=== PATIENT | female | born 1965 | race Caucasian/White ===

== ENCOUNTER → 2016-06-20 | Outpatient (CLI) | payer BC ==
[~2016-06-20] MED LIST: BIRTH CONTROL1 EAC1 PO; DAYPRO600 M1 PO; IMURAN50 MG PO; MEDROL DOSEPAK4 MG PO; ROBAXIN750 MG PO; VICODIN 500 MG-1 TAB PO; ZOFRAN ODT4 MG PO
[2016-06-20 11:57] LABS: C-REACTIVE PROTEIN 0.46 MG/DL (0-0.3); FREE T4 0.93 ng/dl (0.76-1.46)
[2016-06-20 12:02] LABS: THYROID STIM HORMONE (HS) 2.06 uIU/ml (0.358-4.75)
== END | disposition home or self-care (01) ==
LOC: LAB 11:02
PROVIDERS: Family Medicine
DX: I49.3 Ventricular premature depolarization (principal); K50.10 Crohn's disease of large intestine without complications

== ENCOUNTER → 2016-08-03 | Outpatient (CLI) | payer BC | END | disposition home or self-care (01) | LOC: MAMMO 11:03 | DX: N63 Unspecified lump in breast (principal); N60.01 Solitary cyst of right breast ==

== ENCOUNTER → 2017-11-02 | Outpatient (CLI) | payer BC | END | disposition home or self-care (01) | LOC: MAMMO 03:26 | DX: Z12.31 Encounter for screening mammogram for malignant neoplasm of breast (principal); R92.1 Mammographic calcification found on diagnostic imaging of breast ==

== ENCOUNTER → 2018-11-29 | Outpatient (CLI) | payer BC ==
[2018-11-29 09:10] LABS: ALKALINE PHOSPHATASE 71 U/L (45-117); BUN 14 mg/dl (7-24); CHLORIDE 107 mmol/L (98-107); CHOLESTEROL 210 mg/dL (<200); CPK 111 U/L (26-192); CREATININE 0.61 mg/dL (0.55-1.02); HDL CHOLESTEROL 46 mg/dl (40-60); LDL CHOLESTEROL 124 mg/dL (9-159); SGOT/AST 13 IU/L (3-35); SGPT/ALT 18 U/L (12-78); SODIUM 139 mmol/L (136-145); TOTAL PROTEIN 7.6 gm/dL (6.4-8.2); TRIGLYCERIDES 198 mg/dl (<150); VLDL CHOLESTEROL 40 mg/dL (6-40)
== END | disposition home or self-care (01) ==
LOC: LAB 08:09
PROVIDERS: Family Medicine
DX: E78.00 Pure hypercholesterolemia, unspecified (principal)

== ENCOUNTER → 2019-03-11 | Outpatient (CLI) | payer BC | END | disposition home or self-care (01) | LOC: US 12:30 | DX: N93.9 Abnormal uterine and vaginal bleeding, unspecified (principal) ==

== ENCOUNTER → 2019-03-19 | Outpatient (CLI) | payer BC | END | disposition home or self-care (01) | LOC: MAMMO 12:49 | DX: Z12.31 Encounter for screening mammogram for malignant neoplasm of breast (principal) ==

== ENCOUNTER → 2019-09-25 | Outpatient (CLI) | payer BC ==
[2019-09-25 10:22] LABS: ALBUMIN 4.1 gm/dl (3.1-4.5); BUN 11 mg/dl (7-24); CHLORIDE 106 mmol/L (98-107); CHOLESTEROL 287 mg/dL (<200); CREATININE 0.69 mg/dL (0.55-1.02); SGOT/AST 21 IU/L (3-35); SGPT/ALT 30 U/L (12-78); SODIUM 139 mmol/L (136-145); TRIGLYCERIDES 237 mg/dl (<150); VLDL CHOLESTEROL 47 mg/dL (6-40)
[2019-09-25 10:23] LABS: ALKALINE PHOSPHATASE 94 U/L (45-117); CPK 145 U/L (26-192); HDL CHOLESTEROL 47 mg/dl (40-60); LDL CHOLESTEROL 193 mg/dL (9-159); TOTAL PROTEIN 8.1 gm/dL (6.4-8.2)
== END | disposition home or self-care (01) ==
LOC: LAB 08:52
PROVIDERS: Family Medicine
DX: E78.00 Pure hypercholesterolemia, unspecified (principal); E55.9 Vitamin D deficiency, unspecified

== ENCOUNTER → 2019-10-28 | Outpatient (CLI) | payer BC | END | disposition home or self-care (01) | LOC: LAB 09:34 | PROVIDERS: ATTEND Internal Medicine Gastroenterology | DX: K50.10 Crohn's disease of large intestine without complications (principal); R19.7 Diarrhea, unspecified ==

== ENCOUNTER → 2019-12-24 | Outpatient (CLI) | payer BC | END | disposition home or self-care (01) | LOC: COVID19 00:23 | PROVIDERS: ATTEND Family Medicine | DX: Z20.828 Contact with and (suspected) exposure to other viral communicable diseases (principal) ==

== ENCOUNTER 2019-12-25 18:14 | Emergency (ER) | payer BC ==
[~2019-12-25] VITALS: Ht 162.5 cm; Wt 72.6 kg
[2019-12-25 19:49] LABS: BASO % 0.2 % (0.0-1.0); EOS % 0.4 % (1.0-4.0); HEMATOCRIT 38.9 % (37.0-47.0); LYMPH # 0.8 10*3/uL (1.3-4.4); LYMPH % 17.5 % (27.0-41.0); MEAN CELL VOLUME 90.7 fl (81.0-99.0); MEAN CORPUSCULAR HGB 29.8 pg (27.0-31.0); MEAN CORPUSCULAR HGB CONC 32.9 g/dl (33.0-37.0); MEAN PLATELET VOLUME 9.1 fl (9.6-12.3); MONO # 0.4 10*3/uL (0.1-1.0); MONO % 7.7 % (3.0-9.0); NEUT # 3.5 10*3/uL (2.3-7.9); NEUT % 73.6 % (47.0-73.0); PLATELET COUNT AUTOMATED 246 10*3/uL (130-400); RED BLOOD COUNT 4.29 10*6/uL (4.10-5.10); RED CELL DISTRI WIDTH 13.2 % (0-14.5); WHITE BLOOD COUNT 4.7 10*3/uL (4.8-10.8)
[2019-12-25 20:05] LABS: ALKALINE PHOSPHATASE 88 U/L (45-117); BUN 14 mg/dl (7-24); CHLORIDE 107 mmol/L (98-107); CREATININE 0.68 mg/dL (0.55-1.02); POTASSIUM 3.5 mmol/L (3.5-5.1); SGOT/AST 19 IU/L (3-35); SGPT/ALT 22 U/L (12-78); SODIUM 140 mmol/L (136-145); TOTAL PROTEIN 7.8 gm/dL (6.4-8.2)
== END 2019-12-25 21:59 | disposition home or self-care (01) ==
LOC: ED 18:14
PROVIDERS: Physician Assistant
DX: B34.9 Viral infection, unspecified (principal); Z79.899 Other long term (current) drug therapy

== ENCOUNTER → 2020-01-22 | Outpatient (CLI) | payer BC ==
[2020-01-22 10:15] LABS: ALBUMIN 4.2 gm/dl (3.1-4.5); BUN 15 mg/dl (7-24); CHLORIDE 108 mmol/L (98-107); CHOLESTEROL 172 mg/dL (<200); CPK 131 U/L (26-192); CREATININE 0.64 mg/dL (0.55-1.02); POTASSIUM 3.8 mmol/L (3.5-5.1); SGOT/AST 20 IU/L (3-35); SGPT/ALT 25 U/L (12-78); SODIUM 141 mmol/L (136-145); TOTAL PROTEIN 7.9 gm/dL (6.4-8.2); TRIGLYCERIDES 154 mg/dl (<150); VLDL CHOLESTEROL 31 mg/dL (6-40)
[2020-01-22 10:16] LABS: ALKALINE PHOSPHATASE 63 U/L (45-117); HDL CHOLESTEROL 52 mg/dl (40-60); LDL CHOLESTEROL 89 mg/dL (9-159)
== END | disposition home or self-care (01) ==
LOC: LAB 08:54
PROVIDERS: ATTEND Family Medicine
DX: E78.00 Pure hypercholesterolemia, unspecified (principal)

== ENCOUNTER → 2020-04-13 | Outpatient (CLI) | payer BC ==
[2020-04-13 09:42] LABS: BASO # 0.1 10*3/uL (0.0-0.1); BASO % 0.8 % (0.0-1.0); EOS # 0.1 10*3/uL (0.0-0.4); EOS % 1.9 % (1.0-4.0); HEMATOCRIT 40.6 % (37.0-47.0); LYMPH # 1.5 10*3/uL (1.3-4.4); MEAN CELL VOLUME 91.6 fl (81.0-99.0); MEAN CORPUSCULAR HGB 29.6 pg (27.0-31.0); MEAN CORPUSCULAR HGB CONC 32.3 g/dl (33.0-37.0); MEAN PLATELET VOLUME 9.4 fl (9.6-12.3); MONO # 0.4 10*3/uL (0.1-1.0); NEUT # 4.2 10*3/uL (2.3-7.9); NEUT % 66.7 % (47.0-73.0); PLATELET COUNT AUTOMATED 322 10*3/uL (130-400); RED BLOOD COUNT 4.43 10*6/uL (4.10-5.10); WHITE BLOOD COUNT 6.3 10*3/uL (4.8-10.8)
[2020-04-13 10:28] LABS: ALBUMIN 3.8 gm/dl (3.1-4.5); ALKALINE PHOSPHATASE 84 U/L (45-117); BUN 14 mg/dl (7-24); CHLORIDE 110 mmol/L (98-107); CPK 128 U/L (26-192); CREATININE 0.66 mg/dL (0.55-1.02); POTASSIUM 4.1 mmol/L (3.5-5.1); SGOT/AST 21 IU/L (3-35); SGPT/ALT 27 U/L (12-78); SODIUM 143 mmol/L (136-145); TOTAL PROTEIN 7.7 gm/dL (6.4-8.2)
== END | disposition home or self-care (01) ==
LOC: LAB 09:13
PROVIDERS: Family Medicine; ATTEND Nurse Practitioner Family
DX: K50.10 Crohn's disease of large intestine without complications (principal); E78.00 Pure hypercholesterolemia, unspecified; R19.7 Diarrhea, unspecified; Z20.822 Contact with and (suspected) exposure to COVID-19

== ENCOUNTER → 2020-06-23 | Outpatient (CLI) | payer BC | END | disposition home or self-care (01) | LOC: RAD 08:04 | PROVIDERS: ATTEND Family Medicine | DX: M79.671 Pain in right foot (principal) ==

== ENCOUNTER → 2020-07-06 | Outpatient (CLI) | payer BC | END | disposition home or self-care (01) | LOC: MAMMO 09:30 | PROVIDERS: ATTEND Nurse Practitioner Women's Health | DX: Z12.31 Encounter for screening mammogram for malignant neoplasm of breast (principal); N64.89 Other specified disorders of breast ==

== ENCOUNTER → 2020-07-21 | Outpatient (CLI) | payer BC | END | disposition home or self-care (01) | LOC: CARD 15:00 | PROVIDERS: ATTEND Physical Therapist | DX: I51.7 Cardiomegaly (principal); I49.9 Cardiac arrhythmia, unspecified ==

== ENCOUNTER → 2020-07-24 | Outpatient (CLI) | payer BC | END | disposition home or self-care (01) | LOC: LAB 08:59 | PROVIDERS: Physical Therapist; ATTEND Family Medicine | DX: I10 Essential (primary) hypertension (principal); R73.9 Hyperglycemia, unspecified ==

== ENCOUNTER → 2020-10-28 | Outpatient (CLI) | payer BC | END | disposition home or self-care (01) | LOC: LAB 15:26 | PROVIDERS: ATTEND Nurse Practitioner Family | DX: R19.7 Diarrhea, unspecified (principal) ==

== ENCOUNTER → 2021-07-28 | Outpatient (CLI) | payer BC | END | disposition home or self-care (01) | LOC: MAMMO 11:00 | PROVIDERS: ATTEND Nurse Practitioner Women's Health | DX: Z12.31 Encounter for screening mammogram for malignant neoplasm of breast (principal) ==

== ENCOUNTER → 2022-07-19 | Outpatient (CLI) | payer BC | END | disposition home or self-care (01) | LOC: LAB 08:47 | PROVIDERS: ATTEND Internal Medicine Gastroenterology | DX: K50.10 Crohn's disease of large intestine without complications (principal) ==

== ENCOUNTER → 2022-07-20 | Outpatient (CLI) | payer BC | END | disposition home or self-care (01) | LOC: LAB 01:33 | PROVIDERS: ATTEND Internal Medicine Gastroenterology | DX: K50.10 Crohn's disease of large intestine without complications (principal); R19.7 Diarrhea, unspecified ==

== ENCOUNTER → 2022-08-03 | Outpatient (CLI) | payer BC | END | disposition home or self-care (01) | LOC: MAMMO 00:46 | PROVIDERS: ATTEND Nurse Practitioner Women's Health | DX: Z12.31 Encounter for screening mammogram for malignant neoplasm of breast (principal) ==

== ENCOUNTER → 2023-01-11 | Outpatient (CLI) | payer BC | END | disposition home or self-care (01) | LOC: LAB 09:17 | PROVIDERS: ATTEND Nurse Practitioner Family | DX: K50.10 Crohn's disease of large intestine without complications (principal); R19.7 Diarrhea, unspecified ==

== ENCOUNTER → 2023-06-08 | Outpatient (CLI) | payer BC | END | disposition home or self-care (01) | LOC: LAB 09:39 | PROVIDERS: ATTEND Nurse Practitioner Family | DX: K50.10 Crohn's disease of large intestine without complications (principal); R19.7 Diarrhea, unspecified ==

== ENCOUNTER → 2023-06-09 | Outpatient (CLI) | payer BC | LOC: LAB 01:46 | PROVIDERS: ATTEND Internal Medicine Gastroenterology | DX: K50.10 Crohn's disease of large intestine without complications (principal); R19.7 Diarrhea, unspecified ==

== ENCOUNTER → 2023-08-28 | Outpatient (CLI) | payer BC | END | disposition home or self-care (01) | LOC: MAMMO 08:00 | PROVIDERS: ATTEND Nurse Practitioner Women's Health | DX: Z12.31 Encounter for screening mammogram for malignant neoplasm of breast (principal) ==

== ENCOUNTER 2024-01-15 22:22 | Emergency (ER) | payer BC ==
[~2024-01-15] VITALS: Ht 162.5 cm; Wt 70.3 kg
[2024-01-15] MEDS ORDERED: PRILOSEC20 M1 PO (22:40)
[2024-01-15] MEDS ORDERED: LISINOPRIL20 MG PO (22:40)
[2024-01-15] MEDS ORDERED: methylPREDNISolone sod succ 125 MG VIAL IM ONE (23:05)
[2024-01-15] MEDS ORDERED: PREDNISONE20 M1 PO (23:11)
[2024-01-15] MEDS ORDERED: ZITHROMAX250 MG PO (23:11)
== END 2024-01-15 23:22 | disposition home or self-care (01) ==
LOC: ED 22:22
DX: J40 Bronchitis, not specified as acute or chronic (principal); Z88.5 Allergy status to narcotic agent; Z79.899 Other long term (current) drug therapy; Z98.890 Other specified postprocedural states

== ENCOUNTER 2024-01-23 21:34 | Emergency (ER) | payer BC ==
[~2024-01-23] VITALS: Ht 162.5 cm; Wt 71.2 kg
[~2024-01-23 21:34] MED LIST changes: +LISINOPRIL20 MG PO; +PREDNISONE20 M1 PO; +PRILOSEC20 M1 PO; +ZITHROMAX250 MG PO
[2024-01-23] MEDS ORDERED: ASPIRIN CHEWABL81 MG PO (21:46)
[2024-01-23] MEDS ORDERED: Acetaminophen/Hydrocodone 5 MG/325 MG TABLET PO ONE (23:50)
[2024-01-23] MEDS ORDERED: LEVOFLOXACIN 750 MG TAB PO ONE (23:50)
[2024-01-23] MEDS ORDERED: methylPREDNISolone sod succ 125 MG VIAL IM ONE (23:50)
[2024-01-23] MEDS ORDERED: Ondansetron Hydrochloride 4 MG TAB SL ONE (23:50)
[2024-01-24] MEDS ORDERED: LEVOFLOXACIN750 M2 PO (00:08)
[2024-01-24] MEDS ORDERED: Acetaminophen/Hydrocodone 5 MG/325 MG TABLET PO ONE (00:10)
== END 2024-01-24 00:21 | disposition home or self-care (01) ==
LOC: ED 21:34
DX: J18.9 Pneumonia, unspecified organism (principal); Z88.5 Allergy status to narcotic agent; Z79.899 Other long term (current) drug therapy; Z79.82 Long term (current) use of aspirin; Z98.890 Other specified postprocedural states

== ENCOUNTER → 2024-08-04 | Outpatient (CLI) | payer BC ==
[~2024-08-04] MED LIST changes: +ASPIRIN CHEWABL81 MG PO; +LEVOFLOXACIN750 M2 PO
== END | disposition home or self-care (01) ==
LOC: LAB 12:00
PROVIDERS: ATTEND Nurse Practitioner Family
DX: R19.7 Diarrhea, unspecified (principal)

== ENCOUNTER → 2024-08-05 | Outpatient (CLI) | payer BC ==
[2024-08-05 10:38] LABS: HEMATOCRIT 39.8 % (37.0-47.0); MEAN CELL VOLUME 91.5 fl (81.0-99.0); MEAN CORPUSCULAR HGB 30.6 pg (27.0-31.0); MEAN CORPUSCULAR HGB CONC 33.4 g/dl (33.0-37.0); MEAN PLATELET VOLUME 9.3 fl (9.6-12.3); RED BLOOD COUNT 4.35 10*6/uL (4.10-5.10); RED CELL DISTRI WIDTH 12.7 % (0-14.5)
[2024-08-05 11:02] LABS: ALKALINE PHOSPHATASE 58 U/L (46-116); BUN 14 mg/dl (9-23); CHLORIDE 107 mmol/L (98-107); POTASSIUM 3.5 mmol/L (3.4-5.1); SGPT/ALT 17 U/L (5-49); TOTAL PROTEIN 7.3 gm/dL (6.0-8.0)
== END | disposition home or self-care (01) ==
LOC: LAB 09:56
PROVIDERS: ATTEND Nurse Practitioner Family
DX: K50.10 Crohn's disease of large intestine without complications (principal); R19.7 Diarrhea, unspecified

== ENCOUNTER → 2024-09-04 | Outpatient (CLI) | payer BC | END | disposition home or self-care (01) | LOC: MAMMO 10:39 | PROVIDERS: ATTEND Nurse Practitioner Women's Health | DX: Z12.31 Encounter for screening mammogram for malignant neoplasm of breast (principal); N63.15 Unspecified lump in the right breast, overlapping quadrants; R92.323 Mammographic fibroglandular density, bilateral breasts ==

== ENCOUNTER 2024-12-10 04:22 | Emergency (ER) | payer BC ==
[~2024-12-10] VITALS: Ht 162.5 cm; Wt 69.9 kg
[2024-12-10 05:23] LABS: BILIRUBIN Negative (Negative); BLOOD Trace-Lysed (Negative); CLARITY Clear (Clear); COLOR Yellow (Yellow); KETONE Negative (Negative); LEUKO ESTERASE 1+ (Negative); NITRITE Negative (Negative); PH 6.0 (4.5-8.0); SPECIFIC GRAVITY 1.020 (1.001-1.030); UROBILINOGEN 1.0 E.U./dl (0.0-1.0)
[2024-12-10 05:29] LABS: EPITHELIAL CELLS 21-30
[2024-12-10 05:30] LABS: BACTERIA TRACE; WBC 21-30 wbc/hpf (0-5)
[2024-12-10] MEDS ORDERED: Ondansetron Hydrochloride 4 MG TAB SL ONE (05:30)
[2024-12-10] MEDS ORDERED: HYDROCODONE-AC1 EAC1 PO (05:51)
[2024-12-10] MEDS ORDERED: FLOMAX0.4 MG PO (05:51)
[2024-12-10] MEDS ORDERED: Ondansetron4 MG PO (05:51)
== END 2024-12-10 05:58 | disposition home or self-care (01) ==
LOC: ED 04:22
PROVIDERS: Internal Medicine
DX: N13.2 Hydronephrosis with renal and ureteral calculous obstruction (principal); K80.20 Calculus of gallbladder without cholecystitis without obstruction; N13.4 Hydroureter; R30.9 Painful micturition, unspecified; Z88.5 Allergy status to narcotic agent; Z79.899 Other long term (current) drug therapy; Z79.82 Long term (current) use of aspirin; Z98.890 Other specified postprocedural states

== ENCOUNTER 2024-12-11 02:51 | Emergency (ER) | payer BC ==
[~2024-12-11] VITALS: Ht 162.5 cm; Wt 69.9 kg
[~2024-12-11 02:51] MED LIST changes: +FLOMAX0.4 MG PO; +HYDROCODONE-AC1 EAC1 PO; +Ondansetron4 MG PO
[2024-12-11] MEDS ORDERED: Ondansetron Hydrochloride 4 MG/2 ML VIAL IV ONE (03:50)
[2024-12-11] MEDS ORDERED: HYDROmorphONE Hydrochloride 0.5 MG/0.5 ML SYRINGE IV ONE (03:50)
== END 2024-12-11 04:02 | disposition home or self-care (01) ==
LOC: ED 02:51
DX: N20.9 Urinary calculus, unspecified (principal); Z88.5 Allergy status to narcotic agent; Z79.899 Other long term (current) drug therapy; Z79.82 Long term (current) use of aspirin; Z98.890 Other specified postprocedural states